=== PATIENT | female | born 1975 | race Caucasian/White ===

== ENCOUNTER 2018-02-01 08:21 | Day surgery (SDC) | payer BC ==
[2018-01-24 11:41] LABS: BASOPHILS % (AUTO) 0.5 % (0-1); EOSINOPHILS # (AUTO) 0.2 X10'3 (0-0.9); EOSINOPHILS % (AUTO) 1.9 % (0-6); LYMPHOCYTES # (AUTO) 2.6 X10'3 (1.1-4.8); LYMPHOCYTES % (AUTO) 30.4 % (21-51); MEAN CORPUSCULAR HEMOGLOBIN 28.9 PG (27.0-31.0); MEAN CORPUSCULAR HGB CONC 34.3 % (33.0-36.5); MEAN CORPUSCULAR VOLUME 84.3 FL (78-98); MEAN PLATELET VOLUME 6.8 FL (7.4-10.4); MONOCYTES # (AUTO) 0.5 X10'3 (0-0.9); MONOCYTES % (AUTO) 5.3 % (2-12); NEUTROPHILS # (AUTO) 5.3 X10'3 (1.8-7.7); NEUTROPHILS % (AUTO) 61.9 % (42-75); PRE OP HEMATOCRIT 36.1 % (35.0-45.0); PRE OP HEMOGLOBIN 12.4 g/dL (12.0-16.0); PRE OP PLATELET COUNT 312 X10'3 (140-440); RED BLOOD COUNT 4.28 X10'6 (4.20-5.60); RED CELL DISTRIBUTION WIDTH 13.6 % (11.5-14.5)
[2018-01-24 11:51] LABS: HEMOGLOBIN A1C 9.8 % (4.5-6.2)
[2018-01-24 11:56] LABS: ALBUMIN 3.5 G/DL (3.4-5.0); ALBUMIN/GLOBULIN RATIO 0.8 (1.1-1.5); ALKALINE PHOSPHATASE 77 IU/L (46-116); BLOOD UREA NITROGEN 18 MG/DL (7-18); BUN/CREATININE RATIO 20.2 (6.6-38.0); CALCIUM 9.3 MG/DL (8.5-10.1); CHLORIDE 101 MMOL/L (99-107); CREATININE 0.89 MG/DL (0.40-0.90); PRE OP ALT 63 U/L (30-65); PRE OP ANION GAP 13 (8-16); PRE OP AST 33 U/L (10-37); PRE OP BILIRUB, TOTAL 0.3 MG/DL (0.0-1.0); PRE OP POTASSIUM 3.8 MMOL/L (3.4-5.1); PRE OP SODIUM 137 MMOL/L (135-145); TOTAL CARBON DIOXIDE 23.2 MMOL/L (24-32); TOTAL PROTEIN 7.9 G/DL (6.4-8.2); eGFR 70 ML/MIN
[2018-01-24 11:58] LABS: PRE OP GLUCOSE 201 MG/DL (70-104)
[2018-01-24 12:05] LABS: HCG SERUM QL NEGATIVE
[2018-02-01] VITALS (8 sets, daily range): BP systolic 119–140; BP diastolic 79–91
[~2018-02-01] VITALS: Ht 170.2 cm; Wt 125.1 kg
[~2018-02-01 08:21] MED LIST: ALPR-624 PO; BUPR1PAT TOP; INSU3INS2 SQ; LOSA50TA3 PO; METF500T7 PO; OMEP20TA5 PO; SIMV20TA5 PO; SITA25TA3 PO; TIZA4TAB11 PO; famotidine 20mg tablet PO ONE; ringers solution, lacted 1,000 ML IV SCH
[2018-02-01] MEDS ORDERED: ringers solution, lacted 1,000 ML IV SCH (08:58)
[2018-02-01] MEDS ORDERED: labetalol 20mg/4ml (5mg/ml) syringe IV PRN (09:00)
[2018-02-01] MEDS ORDERED: ondansetron/PF 4mg/2ml inj IV PRN (09:00)
[2018-02-01] MEDS ORDERED: morphine 4 MG/ML inj SYRINge IV PRN ×2 (09:00)
[2018-02-01] MEDS ORDERED: fentaNYL/PF 50MCG/1 ML 2ML syringe IV PRN ×2 (09:00)
[2018-02-01] MEDS ORDERED: hydrALAZINE 20mg/ml inj. IV PRN (09:00)
[2018-02-01] MEDS ORDERED: oxyCODONE/APAP 5-325mg tablet PO ONE ×2 (10:40)
[2018-02-01] MEDS ORDERED: midazolam 2 mg/2 ml injection ONE (11:23)
[2018-02-01] MEDS ORDERED: LIDOcaine 2% (20mg/ml) 5ml vial ONE (11:23)
[2018-02-01] MEDS ORDERED: propofol inj 20 ML IV ONE (11:23)
[2018-02-01] MEDS ORDERED: fentaNYL/PF 50MCG/1 ML 2ML syringe ONE (11:23)
[2018-02-01] MEDS ORDERED: rocuronium 10mg/ml inj IV ONE (11:24)
[2018-02-01] MEDS ORDERED: labetalol 5mg/ml 20ml inj. IV ONE (11:31)
[2018-02-01] MEDS ORDERED: sevoflurane 250ml liquid IH ONE (11:31)
[2018-02-01] MEDS ORDERED: ondansetron/PF 4mg/2ml inj ONE (11:31)
[2018-02-01] MEDS ORDERED: neostigmine methylsulfate 1 MG/ML 10ml vial ONE (11:33)
[2018-02-01] MEDS ORDERED: glycopyrrolate 0.2mg/ml inj ONE (11:33)
== END 2018-02-01 12:57 | disposition home or self-care (01) ==
LOC: PAS 08:21
PROVIDERS: ATTEND Obstetrics & Gynecology
DX: N85.01 Benign endometrial hyperplasia (principal); M79.7 Fibromyalgia; M19.90 Unspecified osteoarthritis, unspecified site; I10 Essential (primary) hypertension; E11.9 Type 2 diabetes mellitus without complications; E66.9 Obesity, unspecified; K21.9 Gastro-esophageal reflux disease without esophagitis; F41.8 Other specified anxiety disorders; F32.9 Major depressive disorder, single episode, unspecified; G43.909 Migraine, unspecified, not intractable, without status migrainosus; G89.29 Other chronic pain; Z87.891 Personal history of nicotine dependence; Z91.040 Latex allergy status; Z68.41 Body mass index [BMI] 40.0-44.9, adult; Z79.4 Long term (current) use of insulin; Z88.5 Allergy status to narcotic agent; Z79.01 Long term (current) use of anticoagulants; Z88.0 Allergy status to penicillin; Z88.6 Allergy status to analgesic agent; Z79.84 Long term (current) use of oral hypoglycemic drugs; Z79.891 Long term (current) use of opiate analgesic; Z98.890 Other specified postprocedural states; Z79.899 Other long term (current) drug therapy
CPT/HCPCS: 36415; 58563; 80053; 82948; 83036; 84703; 85025; 85610; 85730; 86885; 86900; 86901; 93005; A4355; A6255; J2001; J2250; J2270; J2704; J2710; J3010; J3490; J7030; J7120; J2405